=== PATIENT | female | born 2000 | race African-American/Black ===

== ENCOUNTER 2019-05-24 22:55 | Emergency (ER) | payer OTHER ==
[~2019-05-24] VITALS: Ht 165.1 cm; Wt 70.3 kg
[2019-05-24 23:01] VITALS: BP 122/65
[2019-05-24] MEDS ORDERED: diphenhydrAMINE HCL 50 MG CAPSULE ONE (23:28)
[2019-05-24] MEDS ORDERED: diphenhydrAMINE HCL 25 MG CAPSULE PO ONE (23:30)
== END 2019-05-24 23:34 | disposition home or self-care (01) ==
LOC: ER 23:01
DX: S40.862A Insect bite (nonvenomous) of left upper arm, initial encounter (principal); S40.861A Insect bite (nonvenomous) of right upper arm, initial encounter; S80.862A Insect bite (nonvenomous), left lower leg, initial encounter; S80.861A Insect bite (nonvenomous), right lower leg, initial encounter; S10.86XA Insect bite of other specified part of neck, initial encounter; W57.XXXA Bitten or stung by nonvenomous insect and other nonvenomous arthropods, initial encounter; Y93.89 Activity, other specified; Y92.89 Other specified places as the place of occurrence of the external cause; Y99.8 Other external cause status
CPT/HCPCS: 99282; Q0163